=== PATIENT | female | born 1950 | race Hispanic/Latino ===

== ENCOUNTER → 2023-09-13 | Outpatient (CLI) | payer OTHER, MEDICARE ==
[~2023-09-13] MED LIST: IOHEXOL 350 MG/ML 100ML INFUS..BTL IV ONE; IOHEXOL-350 50ML VIAL IV ONE
== END | disposition home or self-care (01) ==
LOC: RAH 09:29 → EDSTATUS 10:00
PROVIDERS: ATTEND Internal Medicine Critical Care Medicine
DX: I70.203 Unspecified atherosclerosis of native arteries of extremities, bilateral legs (principal); M47.815 Spondylosis without myelopathy or radiculopathy, thoracolumbar region; K57.90 Diverticulosis of intestine, part unspecified, without perforation or abscess without bleeding; I70.90 Unspecified atherosclerosis
CPT/HCPCS: 75635; Q9967 ×2